=== PATIENT | male | born 1975 | race Caucasian/White ===

== ENCOUNTER 2017-05-26 13:24 | Emergency (ER) | payer OTHER ==
[~2017-05-26] VITALS: Ht 190.5 cm; Wt 105.0 kg
[2017-05-26 13:40] VITALS: BP 107/75
[2017-05-26] MEDS ORDERED: EYE WASH SOLUTION 120ML ONE (13:54)
[2017-05-26] MEDS ORDERED: PROPARACAINE OPHTH 0.5%, 15ML ONE (13:54)
[2017-05-26] MEDS ORDERED: FLUORESCEIN OPHTHALMIC 1 MG STRIP ONE (13:54)
== END 2017-05-26 14:36 | disposition home or self-care (01) ==
LOC: ED 14:10
DX: H10.12 Acute atopic conjunctivitis, left eye (principal)
CPT/HCPCS: 99283

== ENCOUNTER 2017-08-18 04:52 | Emergency (ER) | payer OTHER ==
[~2017-08-18] VITALS: Ht 190.5 cm; Wt 108.3 kg
[2017-08-18] MEDS ORDERED: HYDROcodone/APAP 5/325 TABLET PO ONE (05:30)
[2017-08-18] MEDS ORDERED: HYDROcodone/APAP 5/325 TABLET ONE (05:32)
[2017-08-18 05:43] VITALS: BP 131/74
== END 2017-08-18 05:45 | disposition home or self-care (01) ==
LOC: ED 05:19
DX: K02.9 Dental caries, unspecified (principal); Z87.891 Personal history of nicotine dependence
CPT/HCPCS: 99283

== ENCOUNTER 2018-10-23 08:13 | Emergency (ER) | payer SELFPAY ==
[~2018-10-23] VITALS: Ht 190.5 cm; Wt 109.1 kg
[2018-10-23 08:35] VITALS: BP 121/70
[2018-10-23] MEDS ORDERED: KETOROLAC 30 MG/1 ML IM ONE (09:00)
[2018-10-23] MEDS ORDERED: KETOROLAC 30 MG/1 ML ONE (09:03)
== END 2018-10-23 09:48 | disposition home or self-care (01) ==
LOC: ED 08:49
DX: S29.012A Strain of muscle and tendon of back wall of thorax, initial encounter (principal); S23.9XXA Sprain of unspecified parts of thorax, initial encounter; M51.34 Other intervertebral disc degeneration, thoracic region; X58.XXXA Exposure to other specified factors, initial encounter; Y93.89 Activity, other specified; Y92.89 Other specified places as the place of occurrence of the external cause; Y99.8 Other external cause status
CPT/HCPCS: 72072; 96372; 99283; J1885

== ENCOUNTER 2020-04-13 09:08 | Emergency (ER) | payer MEDICAID, OTHER ==
[~2020-04-13] VITALS: Ht 190.5 cm; Wt 110.0 kg
[~2020-04-13 09:08] MED LIST: IBUP200T49 PO; METH500T97 PO
[2020-04-13 09:17] VITALS: BP 110/80
[2020-04-13] MEDS ORDERED: KETOROLAC 30 MG/1 ML IM ONE (11:30)
--- NOTE | 2020-04-13 11:49 | NUR ---
REPORT FROM [facility] [place]. PT CARE RESPONSIBILITIES ASSUMED.
[2020-04-13] MEDS ORDERED: KETOROLAC 60 MG/2 ML ONE (12:04)
== END 2020-04-13 12:13 | disposition home or self-care (01) ==
LOC: ED 10:30
DX: S39.012A Strain of muscle, fascia and tendon of lower back, initial encounter (principal); G89.29 Other chronic pain; X58.XXXA Exposure to other specified factors, initial encounter; Y93.89 Activity, other specified; Y92.89 Other specified places as the place of occurrence of the external cause; Y99.8 Other external cause status
CPT/HCPCS: 96372; 99283; J1885

== ENCOUNTER 2020-05-18 07:47 | Emergency (ER) | payer MEDICAID ==
[~2020-05-18] VITALS: Ht 190.5 cm; Wt 109.7 kg
[2020-05-18 07:48] VITALS: BP 124/80
[2020-05-18] MEDS ORDERED: KETOROLAC 30 MG/1 ML IM ONE (08:00)
[2020-05-18] MEDS ORDERED: KETOROLAC 30 MG/1 ML ONE (08:25)
--- NOTE | 2020-05-18 08:31 | NUR ---
MEDICATED NOTED ON NOV FOR LOW BACK PAIN. TO BE DISCHARGED.
== END 2020-05-18 08:45 | disposition home or self-care (01) ==
LOC: ED 08:40
DX: S39.012A Strain of muscle, fascia and tendon of lower back, initial encounter (principal); X58.XXXA Exposure to other specified factors, initial encounter; Y93.89 Activity, other specified; Y92.89 Other specified places as the place of occurrence of the external cause; Y99.8 Other external cause status
CPT/HCPCS: 96372; 99283; J1885

== ENCOUNTER 2020-09-22 11:40 | Emergency (ER) | payer MEDICAID ==
[~2020-09-22] VITALS: Ht 190.5 cm; Wt 111.9 kg
[2020-09-22 11:53] VITALS: BP 122/78
[2020-09-22] MEDS ORDERED: LIDOCAINE-MPF 1%, 5ML INFIL ONE (12:00)
--- NOTE | 2020-09-22 14:56 | NUR ---
BREAK RN: PT TO RM FROM LOBBY
[2020-09-22] MEDS ORDERED: LIDOCAINE-MPF 1%, 5ML ONE (15:19)
--- NOTE | 2020-09-22 15:25 | NUR ---
sUPPLIES WERE PUT IN ROOM FOR I&D PT. STATED "THEY AIN'T CUTTING ME OPEN" NURSE NOTIFIED
--- NOTE | 2020-09-22 16:30 | NUR ---
SITTER OUTSIDE ROOM 2 STATED PT FROM THIS ROOM APPROACHED HIM AND STATED HE WAS LEAVING. WENT TO PT ROOM AND IT WAS EMPTY. PT NOT FOUND ANYWHERE IN THE ED.
== END 2020-09-22 17:16 | disposition left against medical advice (07) ==
LOC: ED 13:16
DX: L02.415 Cutaneous abscess of right lower limb (principal)
CPT/HCPCS: 99281

== ENCOUNTER 2020-09-23 06:21 | Emergency (ER) | payer MEDICAID ==
[~2020-09-23] VITALS: Ht 190.5 cm; Wt 111.6 kg
[2020-09-23] MEDS ORDERED: LIDOCAINE-MPF 1%, 5ML INFIL ONE (07:00)
[2020-09-23] MEDS ORDERED: LIDOCAINE-MPF 1%, 2ML ONE (07:05)
--- NOTE | 2020-09-23 07:14 | NUR ---
PT C/O ABSCESS ON RIGHT THIGH. PT STATES ITS BEEN FELT FOR A COUPLE DAYS. PT PAIN 6/10. PT DENIES ANY DRAINAGE OR HEMORRHAGE FROM THE ABSCESS.
[2020-09-23 07:31] VITALS: BP 120/66
--- NOTE | 2020-09-23 08:40 | NUR ---
I/D PROCEDURE COMPLETE. PT REC'VD EDUCATION AND DISCHARGE INSTRUCTIONS. PT HAD NO FURTHER QUESTIONS. PT AMBULATED TO DC AREA, STEADY GAIT.
== END 2020-09-23 09:25 | disposition home or self-care (01) ==
LOC: ED 06:35
DX: L02.214 Cutaneous abscess of groin (principal)
CPT/HCPCS: 10060; 99283

== ENCOUNTER 2020-09-25 06:19 | Emergency (ER) | payer MEDICAID ==
[~2020-09-25] VITALS: Ht 190.5 cm; Wt 112.3 kg
[2020-09-25 06:58] VITALS: BP 134/98
== END 2020-09-25 07:01 | disposition home or self-care (01) ==
LOC: ED 06:38
DX: L02.214 Cutaneous abscess of groin (principal)
CPT/HCPCS: 99282; 99283

== ENCOUNTER 2021-01-12 11:46 | Emergency (ER) | payer MEDICAID ==
[~2021-01-12] VITALS: Ht 190.5 cm; Wt 115.3 kg
[2021-01-12 11:49] VITALS: BP 106/79
--- NOTE | 2021-01-12 12:51 | NUR ---
credit cashier: pt from lobby to room 12
[2021-01-12] MEDS ORDERED: SODIUM CHLORIDE 0.9% 1,000ML IVBOLUS ONE (13:00)
[2021-01-12] MEDS ORDERED: DIPHENHYDRAMINE 50 MG/ML, 1ML IVPush ONE (13:00)
[2021-01-12] MEDS ORDERED: PROCHLORPERAZINE 5 MG/ML, 2ML IVPush ONE (13:00)
[2021-01-12] MEDS ORDERED: DIPHENHYDRAMINE 50 MG/ML, 1ML ONE (13:09)
[2021-01-12] MEDS ORDERED: PROCHLORPERAZINE 5 MG/ML, 2ML ONE (13:09)
[2021-01-12] MEDS ORDERED: KETOROLAC 30 MG/1 ML ONE (13:09)
[2021-01-12] MEDS ORDERED: KETOROLAC 30 MG/1 ML IVPush ONE (14:30)
== END 2021-01-12 14:42 | disposition home or self-care (01) ==
LOC: ED 14:39
DX: G43.909 Migraine, unspecified, not intractable, without status migrainosus (principal); M19.90 Unspecified osteoarthritis, unspecified site
CPT/HCPCS: 96374; 96375; 99284; J0780; J1200; J1885; J7030

== ENCOUNTER 2021-04-14 18:26 | Emergency (ER) | payer MEDICAID, OTHER ==
[~2021-04-14] VITALS: Ht 190.5 cm; Wt 118.1 kg
[2021-04-14 18:28] VITALS: BP 137/86
--- NOTE | 2021-04-14 18:45 | NUR ---
PT SPEAKING IN FULL SENTENCES, NO RESP DISTRESS. PT STATES HE IS VOMITING UP ANYTHING HE DRINKS. PT CONNECTED TO MONITORING. CALL LIGHT IN REACH.
--- NOTE | 2021-04-14 18:53 | NUR ---
PT PROVIDED SPRITE, PT STATES FOOD IS NO LONGER STUCK.
== END 2021-04-14 19:44 | disposition home or self-care (01) ==
LOC: ED 19:00
DX: T18.128A Food in esophagus causing other injury, initial encounter (principal); G43.909 Migraine, unspecified, not intractable, without status migrainosus; M19.90 Unspecified osteoarthritis, unspecified site; X58.XXXA Exposure to other specified factors, initial encounter; Y93.89 Activity, other specified; Y92.89 Other specified places as the place of occurrence of the external cause; Y99.8 Other external cause status
CPT/HCPCS: 99282